=== PATIENT | male | born 1960 | race African-American/Black ===

== ENCOUNTER → 2022-04-23 | Outpatient (CLI) | payer OTHER ==
[~2022-04-23] MED LIST: ASPIRIN 81M81 MG/TA2; MICARDIS20 MG; NEURONTIN100 MG/CAP; NEXIUM 20MG20 MG; STOOL SOFTENER100 M2; ZANAFLEX CAPSULE2 MG; ZYLOPRIM 100MG100 MG
== END ==
LOC: MHCPAIN 07:59
DX: M47.897 Other spondylosis, lumbosacral region (principal); M53.3 Sacrococcygeal disorders, not elsewhere classified; E11.9 Type 2 diabetes mellitus without complications; M54.50 Low back pain, unspecified
CPT/HCPCS: G0463

== ENCOUNTER → 2022-06-25 | Outpatient (CLI) | payer OTHER | LOC: MHCPAIN 15:36 | DX: M47.817 Spondylosis without myelopathy or radiculopathy, lumbosacral region (principal); M54.50 Low back pain, unspecified; M53.3 Sacrococcygeal disorders, not elsewhere classified; E11.9 Type 2 diabetes mellitus without complications | CPT/HCPCS: G0463 ==

== ENCOUNTER → 2022-10-13 | Outpatient (CLI) | payer OTHER | LOC: MHCPAIN 11:04 | DX: M47.817 Spondylosis without myelopathy or radiculopathy, lumbosacral region (principal); M54.50 Low back pain, unspecified; M53.3 Sacrococcygeal disorders, not elsewhere classified ==

== ENCOUNTER → 2022-12-05 | Outpatient (CLI) | payer OTHER | LOC: COL.RAD 14:30 | DX: Z12.2 Encounter for screening for malignant neoplasm of respiratory organs (principal); Z87.891 Personal history of nicotine dependence ==